=== PATIENT | female | born 1970 | race Caucasian/White ===

== ENCOUNTER 2021-01-19 13:12 | Outpatient (RCR) | payer OTHER | END 2021-02-26 | disposition home or self-care (01) | LOC: WSOH | DX: S96.911A Strain of unspecified muscle and tendon at ankle and foot level, right foot, initial encounter (principal); I10 Essential (primary) hypertension; G43.909 Migraine, unspecified, not intractable, without status migrainosus; Y99.0 Civilian activity done for income or pay; Z90.49 Acquired absence of other specified parts of digestive tract; Z90.710 Acquired absence of both cervix and uterus; Z90.89 Acquired absence of other organs ==

== ENCOUNTER 2021-02-28 09:55 | Outpatient (RCR) | payer OTHER | END 2021-04-18 14:42 | disposition home or self-care (01) | LOC: WSOH 09:55 | DX: S96.911D Strain of unspecified muscle and tendon at ankle and foot level, right foot, subsequent encounter (principal); I10 Essential (primary) hypertension; Z90.49 Acquired absence of other specified parts of digestive tract; Z90.89 Acquired absence of other organs; Y99.0 Civilian activity done for income or pay ==